=== PATIENT | female | born 1975 | race African-American/Black ===

== ENCOUNTER 2025-09-08 00:51 | Emergency (ER) | payer SELFPAY ==
[~2025-09-08] VITALS: Ht 167.6 cm; Wt 95.0 kg
[2025-09-08 01:06] VITALS: O2SAT 99
[2025-09-08] MEDS: DIPHENHYDRAMINE 50MG/ML VIAL IM ONE (01:45)
[2025-09-08] MEDS: HALOPERIDOL LACTATE 5MG/ML VIAL IM ONE (01:45)
[2025-09-08] MEDS: LORAZEPAM 2MG/ML UD SYRINGE IM NR (02:00)
[2025-09-08 02:41] LABS: CREATININE 1.1 mg/dL (0.6-1.0)
[2025-09-08 02:42] LABS: UREA NITROGEN BLOOD 5 mg/dL (9-23)
[2025-09-08 02:43] LABS: ASPARTATE AMINOTRANSFERASE 13 IU/L (<34); BILIRUBIN DIRECT < 0.1 mg/dL (<=3.0)
[2025-09-08 02:44] LABS: BILIRUBIN TOTAL 0.3 mg/dL (0.1-1.0); PROTEIN TOTAL 7.9 g/dL (6.0-8.3)
[2025-09-08 02:50] LABS: BASOPHILS % 0.4 % (0.0-2.0); EOSINOPHILS % 0.7 % (0.0-5.0); HEMATOCRIT. 32.8 % (36.0-48.0); HEMOGLOBIN. 10.0 g/dL (12.0-16.0); LYMPHOCYTES % 11.7 % (20.0-50.0); MEAN PLATELET VOLUME 8.5 fl (7.4-10.4); MONOCYTES % 3.8 % (2.0-8.0); NEUTROPHILS % 83.4 % (40.0-76.0); PLATELET 293 x1000/uL (130-400); RED BLOOD CELL COUNT 4.55 mill/uL (4.2-5.4); RED CELL DISTRIBUTION WIDTH 18.8 % (11.6-14.6)
[2025-09-08 03:14] LABS: HCG SCREEN NEGATIVE
[2025-09-08 03:14] LABS: *AMPHETAMINES SCREEN URINE NEGATIVE (NEGATIVE); *BARBITURATES SCREEN URINE NEGATIVE (NEGATIVE); *BENZODIAZEPINES SCREEN URINE NEGATIVE (NEGATIVE); *COCAINE SCREEN URINE NEGATIVE (NEGATIVE); METHADONE URINE SCREEN NEGATIVE (NEGATIVE); OPIATES URINE SCREEN NEGATIVE (NEGATIVE); PHENCYCLIDINE URINE SCREEN NEGATIVE (NEGATIVE)
[2025-09-08 03:15] LABS: CANNABINOID URINE SCREEN NEGATIVE (NEGATIVE); ECSTASY MDMA SCREEN URINE NEGATIVE (NEGATIVE)
[2025-09-08 03:21] LABS: CLARITY URINE CLEAR (CLEAR); COLOR URINE YELLOW (YELLOW); GLUCOSE URINE NEGATIVE (NEGATIVE); KETONES URINE NEGATIVE (NEGATIVE); NITRITE URINE NEGATIVE (NEGATIVE); OCCULT BLOOD URINE 2+ (NEGATIVE); PH URINE 5.0 (4.5-8.0); PROTEIN URINE NEGATIVE (NEGATIVE); SPECIFIC GRAVITY URINE 1.008 (1.005-1.030)
[2025-09-08 03:22] LABS: LEUKOCYTE ESTERASE URINE NEGATIVE (NEGATIVE); UROBILINOGEN URINE 0.2 E.U./dL (0.2-1.0)
[2025-09-08 03:47] LABS: BACTERIA URINE 1+; RBC URINE 0-2 /hpf (0-2); SQUAMOUS EPITHELIAL CELL URINE 1+ /lpf (RARE/1+); WBC URINE 0-2 /hpf (0-2)
[2025-09-08] MEDS: POTASSIUM CHLORIDE 20MEQ/PACKET PO NR (06:15)
[2025-09-08] MEDS: QUETIAPINE FUMARATE 25MG TABLET PO SCH (10:34)
[2025-09-08] MEDS: POTASSIUM CHLORIDE 20MEQ TABLET SR PO ONE (13:59)
[2025-09-08 18:17] VITALS: BP 132/86; PULSE 103; RESP 14; TEMP 36.8; O2SAT 100
== END 2025-09-08 18:25 ==
LOC: ER 00:51
DX: F20.9 Schizophrenia, unspecified (principal); E87.6 Hypokalemia; Z79.899 Other long term (current) drug therapy; Z20.822 Contact with and (suspected) exposure to COVID-19; Z88.0 Allergy status to penicillin
CPT/HCPCS: 80076; 80305; 80048; 81003; 80307; 80329; 80320; 84703; 85025; 36415; 96372; 99285; 87426; J1200; J1630; J2060; G0480